=== PATIENT | female | born 1980 ===

== ENCOUNTER 2021-01-23 08:30 | Inpatient (IN) | payer OTHER ==
[~2021-01-23] VITALS: Ht 154.9 cm; Wt 57.2 kg
[2021-01-23] MEDS ORDERED: ALBUTER IH (11:15)
[2021-01-25] MEDS ORDERED: PROAIR HFA8.5 GM (13:24)
== END 2021-01-28 15:15 | disposition home or self-care (01) | DRG 743 ==
LOC: OB/GYN 01-25 08:15 → O/R 01-25 10:25 → OB/GYN 01-25 17:14
PROVIDERS: ADMIT Obstetrics & Gynecology; ATTEND Obstetrics & Gynecology
PROC: 0UT94ZZ Resection of Uterus, Percutaneous Endoscopic Approach (ICD-10-PCS; principal; 2021-01-25 08:15)
DX: D25.1 Intramural leiomyoma of uterus (principal); N80.0 Endometriosis of uterus; N88.8 Other specified noninflammatory disorders of cervix uteri; N84.0 Polyp of corpus uteri; N93.9 Abnormal uterine and vaginal bleeding, unspecified